=== PATIENT | male | born 1955 | race Caucasian/White ===

== ENCOUNTER 2023-04-20 15:32 | Emergency (ER) | payer MEDICARE ==
[2023-04-20] MEDS ORDERED: Lidocaine 1% with EPINEPHrine 1:100,000 50 ML MDV INFILT ONE (16:19)
[2023-04-20] MEDS ORDERED: Lidocaine 1% with EPINEPHrine 1:100,000 20 ML MDV INJECT ONE (16:23)
[2023-04-20] MEDS ORDERED: Diphtheria,Pertussis(Acell),Tetanus Vaccine 0.5 ML Syringe IM ONE (16:32)
[2023-04-20] MEDS ORDERED: traMADol 50 MG Tab ONE (17:00)
[2023-04-20] MEDS ORDERED: Amoxicillin 500 MG Cap ONE (17:00)
== END 2023-04-20 17:13 | disposition home or self-care (01) ==
LOC: LB.ED 15:32
DX: S62.633A Displaced fracture of distal phalanx of left middle finger, initial encounter for closed fracture (principal); S61.213A Laceration without foreign body of left middle finger without damage to nail, initial encounter; I10 Essential (primary) hypertension; Z79.899 Other long term (current) drug therapy; Z88.2 Allergy status to sulfonamides; Z91.018 Allergy to other foods; W23.0XXA Caught, crushed, jammed, or pinched between moving objects, initial encounter
CPT/HCPCS: 12001; 73140-F2; 90471; 90715; 99283-25; A9270-GY